=== PATIENT | male | born 1940 | race Caucasian/White ===

== ENCOUNTER 2017-03-25 12:02 | Inpatient (IN) | payer OTHER ==
[~2017-03-25] VITALS: Ht 170.2 cm; Wt 69.5 kg
[2017-03-25] VITALS (8 sets, daily range): BP systolic 95–137; BP diastolic 54–71
[~2017-03-25 12:02] MED LIST: AMLODIPINE BESY10 MG PO; ASPIRIN325 MG PO; ATENOLOL25 MG PO; NICOTINE PATCH1 EAC2 TD; VENTOLIN HFA18 GM IH
[2017-03-25 12:51] LABS: BASOPHIL COUNT 0.1 K/uL (0-0.1); EOSINOPHIL (%) 4.5 % (0-5); EOSINOPHIL COUNT 0.4 K/uL (0-0.3); HEMATOCRIT 47.9 % (38.0-50.0); IMMATURE GRANULOCYTE (%) 0.3 % (0.0-0.7); INSTRUMENT ABS NEUTROPHIL CT 3.8 K/uL; LYMPHOCYTE COUNT 2.9 K/uL (1.0-2.8); MCH 30.3 PG (29.0-34.0); MCHC 32.4 G/DL (30.0-36.0); MCV 93.7 FL (86-99); MONOCYTE (%) 8.1 % (3-12); MONOCYTE COUNT 0.6 K/uL (0-0.8); NEUTROPHIL (%) 48.8 % (45-76); NEUTROPHIL COUNT 3.8 K/uL (1.8-6.4); PLATELET COUNT 188 K/uL (156-360); RBC DIS.WIDTH-CV 13.3 % (11.8-14.6); RBC DIS.WIDTH-SD 46.5 % (39-53); RED BLOOD COUNT 5.11 M/uL (4.00-5.50); WHITE BLOOD COUNT 7.9 K/uL (4.1-10.2)
[2017-03-25 13:01] LABS: PTT 29.1 (25-32)
[2017-03-25 13:07] LABS: CHLORIDE 102 mEq/L (99-109); POTASSIUM 4.7 mEq/L (3.7-5.4); SODIUM 137 mEq/L (136-147)
[2017-03-25 13:09] LABS: GLUCOSE 121 mg/dL (70-99)
[2017-03-25 13:10] LABS: ANION GAP 9 MEQ/L (2-14)
[2017-03-25 13:13] LABS: GFR ESTIMATE (CALCULATED) 57 mL/min/
[2017-03-25 13:14] LABS: UREA NITROGEN (BUN) 25 mg/dL (9-23)
[2017-03-25 13:23] LABS: TROP-I INTERPRETATION POSITIVE
[2017-03-25 13:25] LABS: TROPONIN-I 9.56 ng/mL (0.0-0.30)
[2017-03-25 15:06] LABS: TROPONIN-I 12.96 ng/mL (0.0-0.30)
[2017-03-25 15:07] LABS: TROP-I INTERPRETATION POSITIVE
[2017-03-25 20:02] LABS: METH RESISTANT S AUREUS PCR NEGATIVE (NEGATIVE); PROBE CHECK PASS; SPECIMEN PROCESSING CONTROL PASS
[2017-03-25 23:26] LABS: TROP-I INTERPRETATION POSITIVE; TROPONIN-I 23.32 ng/mL (0.0-0.30)
[2017-03-26] VITALS (18 sets, daily range): BP systolic 99–135; BP diastolic 48–73
[2017-03-26 07:26] LABS: HEMATOCRIT 41.5 % (38.0-50.0); MCH 31.1 PG (29.0-34.0); MCHC 32.8 G/DL (30.0-36.0); MEAN PLAT.VOLUME 10.9 uM^3 (9.0-12.4); PLATELET COUNT 169 K/uL (156-360); RBC DIS.WIDTH-CV 13.8 % (11.8-14.6); RBC DIS.WIDTH-SD 48.4 % (39-53); RED BLOOD COUNT 4.37 M/uL (4.00-5.50)
[2017-03-26 07:57] LABS: ANION GAP 4 MEQ/L (2-14); CHLORIDE 102 MEQ/L (99-109); GFR ESTIMATE (CALCULATED) 57 mL/min/; GLUCOSE 95 mg/dL (70-99); HDL CHOLESTEROL 38 MG/DL (Desirable>=40); LDL CHOLESTEROL 80 mg/dL (Desirable<100); NON-HDL CHOLESTEROL 91 mg/dL (Desirable<160); POTASSIUM 4.6 MEQ/L (3.7-5.4); SAMPLE HEMOLYSIS CHECK 0; SAMPLE ICTERIC CHECK 0; SAMPLE LIPEMIA CHECK 0; SODIUM 135 MEQ/L (136-147); TOTAL CHOLESTEROL 129 mg/dL (Desirable<200); TRIGLYCERIDES 53 MG/DL (Normal: <150); UREA NITROGEN (BUN) 31 mg/dL (9-23)
[2017-03-26 08:29] LABS: TROP-I INTERPRETATION POSITIVE; TROPONIN-I 11.63 ng/mL (0.0-0.30)
[2017-03-26] MEDS ORDERED: ATORVASTATIN CA80 MG PO (15:19)
[2017-03-26] MEDS ORDERED: NITROSTAT0.4 MG SL (15:19)
[2017-03-26] MEDS ORDERED: CLOPIDOGREL75 MG PO (15:19)
[2017-03-26] MEDS ORDERED: LOPRESSOR25 MG PO (15:20)
[2017-03-26] MEDS ORDERED: LOSARTAN POTASS25 MG PO (15:20)
[2017-03-26] MEDS ORDERED: ASPIRIN EC325 MG PO (15:20)
== END 2017-03-26 18:23 | disposition home or self-care (01) | DRG 247 ==
LOC: EME 12:02 → EDOF 13:44 → 4WEST 16:30
PROVIDERS: Emergency Medicine; Internal Medicine; Internal Medicine Cardiovascular Disease
DX: I21.4 Non-ST elevation (NSTEMI) myocardial infarction (principal); I10 Essential (primary) hypertension; F12.90 Cannabis use, unspecified, uncomplicated; F17.210 Nicotine dependence, cigarettes, uncomplicated; I25.10 Atherosclerotic heart disease of native coronary artery without angina pectoris; J44.9 Chronic obstructive pulmonary disease, unspecified
CPT/HCPCS: 71010; 80048; 80061; 84484; 85025; 85027; 85347; 85610; 85730; 87641; 93005; 94640; 94640 76; 94799; 99202; 99281; 99285; C1725; C1769; C1874; C1887; J0461; J1644; J2250; J2405; J3010; J7644

== ENCOUNTER 2018-06-20 16:22 | Emergency (ER) | payer OTHER ==
[~2018-06-20] VITALS: Ht 175.3 cm; Wt 65.1 kg
[~2018-06-20 16:22] MED LIST changes: +ASPIRIN EC325 MG PO; +ATORVASTATIN CA80 MG PO; +CLOPIDOGREL75 MG PO; +LOPRESSOR25 MG PO; +LOSARTAN POTASS25 MG PO; +NITROSTAT0.4 MG SL
[2018-06-20 18:14] LABS: BASOPHIL (%) 1.1 % (0-1); BASOPHIL COUNT 0.1 K/uL (0-0.1); EOSINOPHIL (%) 6.7 % (0-5); EOSINOPHIL COUNT 0.5 K/uL (0-0.3); IMMATURE GRANULOCYTE (%) 0.1 % (0.0-0.7); LYMPHOCYTE (%) 33.2 % (15-42); LYMPHOCYTE COUNT 2.7 K/uL (1.0-2.8); MCH 32.3 PG (29.0-34.0); MCHC 33.3 G/DL (30.0-36.0); MCV 96.8 FL (86-99); MONOCYTE (%) 5.7 % (3-12); MONOCYTE COUNT 0.5 K/uL (0-0.8); NEUTROPHIL (%) 53.2 % (45-76); NEUTROPHIL COUNT 4.3 K/uL (1.8-6.4); PLATELET COUNT 193 K/uL (156-360); RBC DIS.WIDTH-CV 14.4 % (11.8-14.6); RBC DIS.WIDTH-SD 51.3 % (39-53); RED BLOOD COUNT 4.03 M/uL (4.00-5.50)
[2018-06-20 18:17] LABS: INTER. NORMALIZED RATIO 0.9
[2018-06-20 18:20] LABS: PTT 31.3 SEC (25-37)
[2018-06-20 18:22] LABS: CARBON DIOXIDE (BICARBONATE) 36.7 MEQ/L (20-31)
[2018-06-20 18:23] LABS: ALBUMIN 3.5 g/dL (3.2-4.8); CHLORIDE 103 mEq/L (99-109); POTASSIUM 4.7 mEq/L (3.7-5.4); SODIUM 140 mEq/L (136-147)
[2018-06-20 18:26] LABS: GLUCOSE 101 mg/dL (70-99); TOTAL PROTEIN 6.6 g/dL (6.4-8.3)
[2018-06-20 18:28] LABS: TOTAL BILIRUBIN 0.6 mg/dL (0.0-1.0)
[2018-06-20 18:29] LABS: ALKALINE PHOSPHATASE 80 IU/L (3-129); CREATININE 1.5 mg/dL (0.6-1.3); GFR ESTIMATE (CALCULATED) 48 mL/min/ (58.99-99999)
[2018-06-20 18:30] LABS: UREA NITROGEN (BUN) 29 mg/dL (9-23)
[2018-06-20 18:31] LABS: AST (GOT) 28 IU/L (2-34); DIRECT BILIRUBIN 0.3 mg/dL (0.0-0.3)
[2018-06-20 18:32] LABS: ALT (GPT) 23 IU/L (3-49)
[2018-06-20 18:34] LABS: TROP-I INTERPRETATION NEGATIVE; TROPONIN-I < 0.01 ng/mL (0.0-0.30)
[2018-06-20] MEDS ORDERED: ZITHROMAX Z-PA250 MG PO (19:46)
[2018-06-20 20:03] VITALS: BP 142/75
== END 2018-06-20 20:07 | disposition home or self-care (01) ==
LOC: EME 16:22
PROVIDERS: Emergency Medicine
DX: J44.1 Chronic obstructive pulmonary disease with (acute) exacerbation (principal); I10 Essential (primary) hypertension; F17.200 Nicotine dependence, unspecified, uncomplicated
CPT/HCPCS: 71045; 80048; 80076; 82803; 83605; 83880; 84484; 85025; 85610; 85730; 93005; 94640; 99281; 99285; J1100

== ENCOUNTER 2018-07-02 15:48 | Inpatient (IN) | payer OTHER ==
[~2018-07-02] VITALS: Ht 172.7 cm; Wt 63.5 kg
[~2018-07-02 15:48] MED LIST changes: +ZITHROMAX Z-PA250 MG PO
[2018-07-02 16:41] LABS: BASOPHIL (%) 1.1 % (0-1); BASOPHIL COUNT 0.1 K/uL (0-0.1); EOSINOPHIL (%) 5.3 % (0-5); EOSINOPHIL COUNT 0.4 K/uL (0-0.3); HEMATOCRIT 39.5 % (38.0-50.0); HEMOGLOBIN 13.2 G/DL (12.5-16.6); IMMATURE GRANULOCYTE (%) 0.2 % (0.0-0.7); LYMPHOCYTE (%) 33.4 % (15-42); LYMPHOCYTE COUNT 2.7 K/uL (1.0-2.8); MCH 32.5 PG (29.0-34.0); MCHC 33.4 G/DL (30.0-36.0); MCV 97.3 FL (86-99); MONOCYTE (%) 7.2 % (3-12); MONOCYTE COUNT 0.6 K/uL (0-0.8); NEUTROPHIL (%) 52.8 % (45-76); NEUTROPHIL COUNT 4.2 K/uL (1.8-6.4); PLATELET COUNT 230 K/uL (156-360); RBC DIS.WIDTH-CV 14.4 % (11.8-14.6); RED BLOOD COUNT 4.06 M/uL (4.00-5.50); WHITE BLOOD COUNT 8.1 K/uL (4.1-10.2)
[2018-07-02 16:58] LABS: ALBUMIN 3.5 g/dL (3.2-4.8); CHLORIDE 105 mEq/L (99-109); POTASSIUM 4.9 mEq/L (3.7-5.4); SODIUM 139 mEq/L (136-147)
[2018-07-02 17:00] LABS: GLUCOSE 111 mg/dL (70-99); TOTAL PROTEIN 6.7 g/dL (6.4-8.3)
[2018-07-02 17:01] LABS: TROP-I INTERPRETATION NEGATIVE; TROPONIN-I < 0.01 ng/mL (0.0-0.30)
[2018-07-02 17:02] LABS: TOTAL BILIRUBIN 0.7 mg/dL (0.0-1.0)
[2018-07-02 17:04] LABS: ALKALINE PHOSPHATASE 63 IU/L (3-129); CREATININE 1.3 mg/dL (0.6-1.3); GFR ESTIMATE (CALCULATED) 57 mL/min/ (58.99-99999)
[2018-07-02 17:05] LABS: UREA NITROGEN (BUN) 27 mg/dL (9-23)
[2018-07-02 17:06] LABS: AST (GOT) 27 IU/L (2-34)
[2018-07-02 17:07] LABS: ALT (GPT) 24 IU/L (3-49)
[2018-07-02] MEDS ORDERED: VENTOLIN HFA18 GM IH (19:20)
[2018-07-02] MEDS ORDERED: PLAVIX75 MG PO (19:21)
[2018-07-02] MEDS ORDERED: COZAAR25 MG PO (19:21)
[2018-07-02] MEDS ORDERED: LO-DOSE ASPIRIN81 M1 PO (19:22)
[2018-07-02 20:30] VITALS: BP 151/70
[2018-07-02 21:19] LABS: BASOPHIL (%) 0.6 % (0-1); EOSINOPHIL (%) 0.8 % (0-5); HEMATOCRIT 38.2 % (38.0-50.0); HEMOGLOBIN 12.5 G/DL (12.5-16.6); IMMATURE GRANULOCYTE (%) 0.6 % (0.0-0.7); LYMPHOCYTE (%) 14.1 % (15-42); LYMPHOCYTE COUNT 0.7 K/uL (1.0-2.8); MCH 31.9 PG (29.0-34.0); MCHC 32.7 G/DL (30.0-36.0); MCV 97.4 FL (86-99); MONOCYTE COUNT 0.1 K/uL (0-0.8); NEUTROPHIL (%) 82.9 % (45-76); NEUTROPHIL COUNT 4.2 K/uL (1.8-6.4); PLATELET COUNT 210 K/uL (156-360); RBC DIS.WIDTH-CV 14.3 % (11.8-14.6); RBC DIS.WIDTH-SD 51.5 % (39-53); RED BLOOD COUNT 3.92 M/uL (4.00-5.50); WHITE BLOOD COUNT 5.1 K/uL (4.1-10.2)
[2018-07-02 21:27] LABS: INTER. NORMALIZED RATIO 0.9
[2018-07-02 21:28] LABS: CHLORIDE 105 mEq/L (99-109)
[2018-07-02 21:29] LABS: POTASSIUM 4.1 mEq/L (3.7-5.4); SODIUM 138 mEq/L (136-147)
[2018-07-02 21:30] LABS: GLUCOSE 247 mg/dL (70-99); PTT 30.7 SEC (25-37)
[2018-07-02 21:34] LABS: CREATININE 1.3 mg/dL (0.6-1.3); GFR ESTIMATE (CALCULATED) 57 mL/min/ (58.99-99999)
[2018-07-02 21:35] LABS: UREA NITROGEN (BUN) 29 mg/dL (9-23)
[2018-07-03] VITALS (9 sets, daily range): BP systolic 90–128; BP diastolic 50–78
[2018-07-04 05:05] VITALS: BP 109/56
[2018-07-04 08:11] VITALS: BP 126/63
[2018-07-04] MEDS ORDERED: VENTOLIN HFA18 GM IH (10:45)
[2018-07-04] MEDS ORDERED: SPIRIVA RESPIMAT4 GM IH (10:45)
[2018-07-04] MEDS ORDERED: MEDROL DOSEPAK4 MG PO (11:38)
[2018-07-04 11:45] VITALS: BP 115/59
[2018-07-04] MEDS ORDERED: ALBUTEROL2.5 MG/3 M IH (12:29)
== END 2018-07-04 13:46 | disposition home or self-care (01) | DRG 192 ==
LOC: EME 15:48 → EDOF 19:13 → 4SOUTH 19:13 → ENRESERV 19:18 → 4SOUTH 20:16
PROVIDERS: Emergency Medicine; Hospitalist
DX: J44.1 Chronic obstructive pulmonary disease with (acute) exacerbation (principal); J44.0 Chronic obstructive pulmonary disease with (acute) lower respiratory infection; J20.9 Acute bronchitis, unspecified; I10 Essential (primary) hypertension; I25.10 Atherosclerotic heart disease of native coronary artery without angina pectoris; F12.90 Cannabis use, unspecified, uncomplicated; F17.290 Nicotine dependence, other tobacco product, uncomplicated; Z79.82 Long term (current) use of aspirin; I25.2 Old myocardial infarction; Z79.02 Long term (current) use of antithrombotics/antiplatelets; Z95.5 Presence of coronary angioplasty implant and graft
CPT/HCPCS: 71046; 80048 91; 80053; 83880; 84484; 85025; 85025 91; 85610; 85730; 93005; 94640; 94799; 99281; 99285; J1644; J2920; J2930